=== PATIENT | male | born 1965 | race Caucasian/White ===

== ENCOUNTER 2022-10-26 22:19 | Emergency (ER) | payer MEDICAID ==
[~2022-10-26] VITALS: Ht 167.6 cm; Wt 61.4 kg
[~2022-10-26 22:19] MED LIST: AUG500T PO
[2022-10-26 22:20] VITALS: BP 134/80; PULSE 94; RESP 16; TEMP 97.8; O2SAT 99
== END 2022-10-27 02:30 | disposition left against medical advice (07) ==
LOC: ER 22:20
DX: Z00.8 Encounter for other general examination (principal); Z53.21 Procedure and treatment not carried out due to patient leaving prior to being seen by health care provider
CPT/HCPCS: 99281

== ENCOUNTER 2024-03-25 18:28 | Emergency (ER) | payer MEDICAID ==
[~2024-03-25] VITALS: Ht 165.1 cm; Wt 66.5 kg
[2024-03-25 18:55] VITALS: BP 141/83; PULSE 100; RESP 16; O2SAT 99
[2024-03-25] MEDS ORDERED: AMOX-117 PO (19:36)
[2024-03-25] MEDS: amox tr/potassium clavulanate 875/125mg TAB PO ONE (19:46)
== END 2024-03-25 19:48 | disposition home or self-care (01) ==
LOC: ER 18:29
DX: K04.7 Periapical abscess without sinus (principal); F10.90 Alcohol use, unspecified, uncomplicated; F12.90 Cannabis use, unspecified, uncomplicated; Z98.890 Other specified postprocedural states; Y90.9 Presence of alcohol in blood, level not specified
CPT/HCPCS: 99283